=== PATIENT | female | born 1985 | race Two or more races ===

== ENCOUNTER 2021-10-15 18:51 | Emergency (ER) | payer BC ==
[~2021-10-15] VITALS: Ht 152.4 cm; Wt 61.2 kg
[2021-10-15 20:13] LABS: HEMATOCRIT 34.7 % (31.2-41.9); MEAN CORPUSCULAR HEMOGLOBIN 32.3 uug (24.7-32.8); MEAN CORPUSCULAR VOLUME 94.6 fL (75.5-95.3); PLATELET COUNT (AUTO) 264 K/uL (179-408)
[2021-10-15] MEDS ORDERED: KETOROLAC TROMETHAMINE 60 MG INJ IM ONE (20:13)
[2021-10-15 20:18] LABS: *URINE HCG, QUAL NEGATIVE (NEGATIVE)
[2021-10-15 20:19] LABS: CARBON DIOXIDE 29 mmol/L (21-32); CHLORIDE 102 mmol/L (98-107); CREATINE KINASE, TOTAL 56 U/L (26-192); CREATININE 0.5 mg/dL (0.6-1.3); GLUCOSE 90 mg/dL (74-106); POTASSIUM 4.3 mmol/L (3.5-5.1); UREA NITROGEN, BLOOD 14 mg/dL (7-18)
[2021-10-15] MEDS: KETOROLAC TROMETHAMINE 60 MG INJ IM ONE (20:31)
[2021-10-15] MEDS ORDERED: IBUP-1958 PO (21:39)
--- NOTE | 2021-10-15 21:44 | NUR ---
Patient discharged to home in stable condition. Written and verbal after care instructions given. Patient verbalizes understanding of instructions. Stressed follow up or return to ER for worsening s/s. pt ambulated with steady gait. denies pain. AOx4
[2021-10-15 21:45] VITALS: BP 110/71
== END 2021-10-15 21:46 | disposition home or self-care (01) ==
LOC: ER 18:53
DX: M79.652 Pain in left thigh (principal)
CPT/HCPCS: 36415; 73502; 73551; 84703; 85025; A4663; J1885

== ENCOUNTER 2022-02-04 20:28 | Emergency (ER) | payer BC ==
[~2022-02-04] VITALS: Ht 152.4 cm; Wt 57.6 kg
[~2022-02-04 20:28] MED LIST: IBUP-1958 PO
[2022-02-04] MEDS ORDERED: LORA-259 PO (21:24)
[2022-02-04] MEDS ORDERED: VENL25TA4 PO (21:24)
--- NOTE | 2022-02-04 21:24 | NUR ---
AFTER BEING TRIAGED, PATIENT WAS PLACED BACK IN THE WAITING ROOM DUE TO NO BEDS AVAILABLE IN THE ER.
--- NOTE | 2022-02-04 22:45 | NUR ---
Patient was called to be placed in bed, but was not present in the waiting room or outside of ER.
--- NOTE | 2022-02-04 23:30 | NUR ---
patient was called to be placed in bed but was not present in the waiting room or outside of ER. PATIENT WAS TRIAGED BUT NOT SEEN BY ERMD.
== END 2022-02-04 23:30 | disposition left against medical advice (07) ==
LOC: ER 20:28
DX: Z53.21 Procedure and treatment not carried out due to patient leaving prior to being seen by health care provider (principal)